=== PATIENT | female | born 1965 | race Caucasian/White ===

== ENCOUNTER → 2016-12-17 | Day surgery (SDC) | payer OTHER ==
[~2016-12-17] MED LIST: ATOR40TA PO; FURO-69 PO; IV RINGERS,LACTATED 1000ML 1,000 ML IV SCH; LEVO100T5 PO; LIDOCAINE 2% PF Vial for OR 5 ML VIAL. ONE; LISI40TA PO; METF500T4 PO; MULT-650 PO; OMEP20TA PO; PROPOFOL 40 ML IV ONE; SOLI5TAB PO; TRAM50TA PO
[2016-12-17 08:07] VITALS: BP 104/73
--- NOTE | 2016-12-22 11:05 | PATHOLOGY ---
PATHOLOGY REPORT * * * * * * * * FINAL DIAGNOSIS: Colon biopsy, ascending colon polyp: - Tubular adenoma. - Fecal material. COMMENT: There is no high grade dysplasia or evidence of malignancy. (JPM:csd; d/t: 12/21/2016) REPORT ELECTRONICALLY SIGNED BY: Vik Goodrich M.D. DATE/TIME: 12/21/2016 13:29 * * * * * * * * GROSS PATHOLOGY: The specimen is received in formalin labeled "Juan Francisco Mallory, ascending colon polyp". Received is white-hudson to green-hudson vegetative material measuring 0.6 x 0.6 x 0.1 cm in aggregate dimensions. Soft tissue is not grossly identified. The specimen is filtered and entirely submitted in cassette A1. (CAA; 12/18/2016) INITIAL CPT CODE(S): A; 56235 Professional services performed by [facility] [place] [address] Technical services performed by [facility] at [address] [place] [address], [address], [place] [address]. SPECIMEN(S) RECEIVED: A.Ascending colon polyp CLINICAL HISTORY: RUQ abdominal pain PATIENT: JUAN FRANCISCO MARIA /AGE: 1004/28/1965 (Age: 51) PATIENT #: [id number] ALT CASE #: SPECIMEN COLLECTION DATE: 12/17/2016 SPECIMEN RECEIVED DATE: 12/17/2016 [facility] - [address] [place] [address] - PHONE: [phone] * * * END OF REPORT * * *
== END | disposition home or self-care (01) ==
LOC: ENDOS 06:34
PROVIDERS: ATTEND Internal Medicine Gastroenterology
DX: Z09 Encounter for follow-up examination after completed treatment for conditions other than malignant neoplasm (principal); Z86.010 Personal history of colon polyps; D12.2 Benign neoplasm of ascending colon; K57.30 Diverticulosis of large intestine without perforation or abscess without bleeding; K64.0 First degree hemorrhoids; K29.50 Unspecified chronic gastritis without bleeding; Z88.6 Allergy status to analgesic agent
CPT/HCPCS: 43235; 45385; J2704; 88305

== ENCOUNTER → 2020-04-25 | Outpatient (CLI) | payer OTHER ==
[2016-12-17 08:07] VITALS: BP 104/73
[~2020-04-25] MED LIST changes: -IV RINGERS,LACTATED 1000ML 1,000 ML IV SCH; -LIDOCAINE 2% PF Vial for OR 5 ML VIAL. ONE; +LISI-130 PO; -LISI40TA PO; +METF500T16 PO; -METF500T4 PO; -OMEP20TA PO; +OMEP20TA8 PO; -PROPOFOL 40 ML IV ONE; -SOLI5TAB PO; +SOLI5TAB2 PO
--- NOTE | 2020-04-25 16:33 | KCIC ---
MRI of the lumbar spine without contrast 04/25/2020 CLINICAL HISTORY: Chronic low back pain. TECHNIQUE: Unenhanced T1-weighted and T2-weighted sagittal and axial and inversion recovery sagittal images of the lumbar spine were obtained. FINDINGS: Very mild S-shaped curvature of the thoracolumbar spine is seen. Degenerative signal changes and loss of height are seen involving all of the disks of the lumbar spine. Degenerative signal changes are seen within the marrow surrounding these discs. A 8mm hemangioma is seen involving the T12 vertebral body. A 1 cm hemangioma is seen involving the L4 vertebral body. The conus medullaris is normal morphology, position, and signal characteristics. At the T12-L1 disc space there is a mild generalized disc bulge. Superimposed on this disc bulge is a right paracentral focal disc herniation which extrudes superiorly to the mid T12 level. This measures 1.5 x 0.9 x 0.5 cm in craniocaudal, transverse and AP dimensions. This effaces the anterior CSF resulting in mild right-sided central spinal canal stenosis without evidence of cord impingement. No neural foraminal stenosis is seen. At the L1-2 disc space there is a mild generalized disc bulge. Superimposed on this disc bulge is a focal central disc herniation which extrudes slightly superiorly and inferiorly. This measures 1.5 x 0.6 x 0.3 cm in craniocaudal, transverse and AP dimensions. Degenerative changes are seen involving the facet joints bilaterally. There is mild ligamentum flavum hypertrophy bilaterally. There is prominence of the posterior epidural fat. These findings when combined result in mild central spinal canal stenosis. No neural foraminal stenosis is seen. At the L2-3 disc space there is a mild to moderate generalized disc bulge. This is eccentric to the left. Superimposed on this disc bulge is a left paracentral focal disc protrusion. This measures 3 mm in AP diameter. Degenerative changes are seen involving the facet joints bilaterally. There are small facet joint effusions bilaterally. There is prominence of the posterior epidural fat. Mild ligamentum flavum hypertrophy is seen. These findings result in mild to moderate left greater than right central spinal canal stenosis. No neural foraminal stenosis is seen. At the L3-4 disc space there is a mild generalized disc bulge. This is eccentric to the right. Degenerative changes are seen involving the facet joints bilaterally. There is mild ligamentum flavum hypertrophy bilaterally. There is prominence of posterior epidural fat. These findings when combined result in mild central spinal canal stenosis. No neural foraminal stenosis is seen. At the L4-5 disc space there is a mild generalized disc bulge. Superimposed on this disc bulge is a focal right paracentral disc protrusion. This measures 3 mm in AP diameter. Degenerative changes are seen involving the facet joints bilaterally. There is mild to moderate ligamentum flavum hypertrophy bilaterally. There is prominence of the posterior epidural fat. These findings when combined result in mild right greater than left central spinal canal stenosis. No neural foraminal stenosis is seen. At the L5-S1 disc space there is a moderate generalized disc bulge. Degenerative changes are seen involving the facet joints, left greater than right. There is mild ligamentum flavum hypertrophy bilaterally. These findings when combined do not result in significant central spinal canal stenosis. Mild to moderate left greater than right neural foraminal stenosis is seen. IMPRESSION: The changes of degenerative disc disease are seen throughout the thoracolumbar junction and lumbar spine. These findings result in mild right-sided central spinal canal stenosis at T12-L1, mild central spinal canal stenosis at L1-2 and L3-4, mild to moderate left greater than right central spinal canal stenosis at L2-3 and mild right greater than left central spinal canal stenosis at L4-5. Mild to moderate left greater than right neural foraminal stenosis is seen at L5-S1. Electronically signed by: Aron Carlson MD (04/25/2020 4:30 PM) [place] [id number]
== END ==
LOC: KCIC MRI 13:46
PROVIDERS: ATTEND Family Medicine
DX: M51.35 Other intervertebral disc degeneration, thoracolumbar region (principal); M48.05 Spinal stenosis, thoracolumbar region; M48.08 Spinal stenosis, sacral and sacrococcygeal region
CPT/HCPCS: 72148

== ENCOUNTER → 2020-07-08 | Outpatient (CLI) | payer OTHER ==
[2016-12-17 08:07] VITALS: BP 104/73
--- NOTE | 2020-07-09 08:55 | EEG ---
DATE OF SERVICE: 07/09/2020 ELECTROENCEPHALOGRAM EEG NUMBER: [id number] OBJECTIVE: The patient is a 55-year-old female with hallucinations and syncope. DESCRIPTION OF PROCEDURE: This is a digital study. Electrodes are placed according to international 10-20 system. Bipolar and referential montages are available. Activation procedures typically include hyperventilation and intermittent photic stimulation. INTERPRETATION: The waking background consists of 9-10 Hz, 50-100 microvolt activity, symmetrically distributed over parietooccipital regions and reactive to eye opening. Hyperventilation and intermittent photic stimulation are noncontributory. Stage 1 sleep is achieved with normal electroencephalogram patterns. IMPRESSION: This electroencephalogram with the patient awake and asleep is within normal limits. There is no focal, paroxysmal, or epileptiform activity. Thank you for letting us help with the patient's care. SARAH WHITAKER MD DR: JACQUI/sujey JOB#: [id number] / [id number] TRAVIS Monahan GALEN MD
--- NOTE | 2020-07-09 08:58 | SLEEP ---
DATE OF STUDY: 07/08/2020 OBJECTIVE: The patient is a 55-year-old female, who had a home sleep study showing sleep apnea, she is here for CPAP titration. Height 5 feet 6 inches, weight 320 pounds, body mass index 51. Chavies sleep score 12. INTERPRETATION: Sleep architecture is characterized by sleep efficiency of 84% across the 7 hours of recording time. There is excellent rebound of stage 3 and REM sleep later in the study during CPAP titration. The sleep onset latency is 0.3 minutes. This was a CPAP titration study, but the apnea-hypopnea index is still 12.4 events per hour of sleep, with a minimum oxygen saturation of 87%. The patient underwent CPAP titration and has excellent control of her events on a CPAP setting of 15 cm. Throughout the night, the patient had coughing episodes, which she relates to postnasal drip, causing arousals. There were also 20 periodic limb movements of sleep per hour, 2 per hour causing arousal. No cardiac arrhythmias are observed. IMPRESSION: Successful CPAP titration for obstructive sleep apnea using a Respironics DreamWear full face mask, small size, 15 cm of CPAP. RECOMMENDATIONS: 1. The patient should be established on this setting. 2. She should avoid sedatives and alcohol and pursue weight loss. Thank you for letting us help with the patient's care. SARAH WHITAKER MD DR: JACQUI/sujey JOB#: [id number] / [id number] TRAVIS Monahan GALEN MD
== END ==
LOC: RT 19:33
PROVIDERS: ATTEND Nurse Practitioner Family
DX: G47.33 Obstructive sleep apnea (adult) (pediatric) (principal)
CPT/HCPCS: 95811

== ENCOUNTER → 2020-07-09 | Outpatient (CLI) | payer OTHER ==
[2016-12-17 08:07] VITALS: BP 104/73
== END ==
LOC: RT 06:07
PROVIDERS: ATTEND Nurse Practitioner Family
DX: R55 Syncope and collapse (principal); R44.3 Hallucinations, unspecified; R25.2 Cramp and spasm
CPT/HCPCS: 95816

== ENCOUNTER → 2021-06-02 | Outpatient (CLI) | payer OTHER ==
[2016-12-17 08:07] VITALS: BP 104/73
--- NOTE | 2021-06-03 07:37 | KCIC ---
EXAMINATION: Magnetic resonance imaging (MRI) of the brain and brainstem without contrast 06/02/2021 3 :28 PM HISTORY: Dizziness and giddiness, slurred speech TECHNIQUE: Multiplanar multi-weighted MRI of the brain and brainstem was performed without intravenou s contrast using the general brain protocol. COMPARISON: None available. FINDINGS: The scalp and calvarium are normal. The superior sagittal sinus demonstrates normal venous flow. The corpus callosum is normal in shape and signal intensity. There is a remote lacunar infarct involving the left middle cerebellar peduncle.. The pituitary and sella are normal. There is subtle T2 signa l hyperintensity identified involving the left midbrain and left violetta extending into the posterior li mb left internal capsule. There is a remote lacunar infarct in the posterior limb left internal capsu le. There are T2/FLAIR signal hyperintense foci in the periventricular and subcortical white matter m ost suggestive of mild chronic small vessel ischemic changes. Diffusion weighted images reveal no hyperintensities to suggest acute cerebral infarction. The suscep tibility weighted sequences reveal no evidence of acute or chronic hemorrhage. The ventricles are nor mal in size and position without evidence of hydrocephalus. The paranasal sinuses are normal. The visualized portions of the mastoids are unremarkable. The orbi ts appear normal. Normal flow voids are demonstrated in the carotid arteries and basilar artery. IMPRESSION: 1. There is a remote lacunar infarct in the posterior limb left internal capsule. Along the posterior limb left internal capsule, left ventral midbrain and left violetta there is contiguous T2 signal hyperi ntensity without definite volume loss. This finding is nonspecific and could be associated with marshall tio degeneration versus demyelination. Findings are atypical for neoplastic process. Postcontrast en hanced imaging could be of benefit. Findings are atypical for sequela of ischemic change. No definite diffusion signal alteration identified within this region. 3 month follow-up MRI of the brain with a nd without contrast is recommended. There is no associated hemorrhage or mass effect. 2. Remote lacunar infarct in the left middle cerebellar peduncle. 3. There are T2/FLAIR signal hyperintense foci in the periventricular and subcortical white matter mo st suggestive of mild chronic small vessel ischemic changes. Electronically signed by: Michelle Chapman MD (06/03/2021 7:34 AM) [facility]
== END ==
LOC: KCIC MRI 15:07
PROVIDERS: ATTEND Nurse Practitioner Family
DX: I63.81 Other cerebral infarction due to occlusion or stenosis of small artery (principal); I69.398 Other sequelae of cerebral infarction; R42 Dizziness and giddiness; R47.81 Slurred speech
CPT/HCPCS: 70551

== ENCOUNTER 2021-06-23 09:25 | Outpatient (CLI) | payer OTHER ==
[~2021-06-23] VITALS: Ht 167.6 cm; Wt 147.3 kg
[2021-06-23] VITALS (10 sets, daily range): BP systolic 137–181; BP diastolic 69–97
[2021-06-23] MEDS ORDERED: HYDR-2765 PO (09:47)
[2021-06-23] MEDS ORDERED: OXYB5TAB10 PO (09:47)
[2021-06-23] MEDS ORDERED: CLOP75TA PO (09:47)
[2021-06-23] MEDS ORDERED: POTA10TA PO (09:47)
[2021-06-23] MEDS ORDERED: CRESTOR40 MG PO (09:47)
[2021-06-23] MEDS ORDERED: ALBU2.5V8 IH (09:47)
[2021-06-23] MEDS ORDERED: DULO60CA7 PO (09:47)
[2021-06-23] MEDS ORDERED: AMLO-187 PO (09:47)
[2021-06-23 10:12] LABS: HEMOGLOBIN 13.4 g/dL (12.0-15.5); RED BLOOD COUNT 4.94 x10^6/uL (3.50-5.40); RED CELL DISTRIBUTION WIDTH 14.4 % (11.5-14.5); WHITE BLOOD COUNT 9.5 x10^3/uL (4.0-11.0)
[2021-06-23 10:16] LABS: CALCIUM 9.1 mg/dL (8.5-10.1); CREATININE 0.9 mg/dL (0.6-1.0); GFR 64.3; POTASSIUM 3.9 mmol/L (3.5-5.1)
[2021-06-23] MEDS ORDERED: fentaNYL PF VIAL 100 MCG/2 ML VIAL ONE (10:39)
[2021-06-23] MEDS ORDERED: HEPARIN for IV BOLUS 10,000 UNIT/10 ML VIAL. ONE (10:39)
[2021-06-23] MEDS ORDERED: MIDAZOLAM HCL/PF 5 MG/5 ML VIAL. ONE (10:39)
[2021-06-23] MEDS ORDERED: VERAPAMIL 5 MG/2 ML VIAL. ONE (10:39)
[2021-06-23] MEDS ORDERED: NITROGLYCERIN 200 MCG/2 ML SYRINGE FOR CATH/VASC LAB. ONE (10:40)
[2021-06-23] MEDS ORDERED: IODIXANOL 320 MG/ML 100 ML VIAL. ONE (11:29)
[2021-06-23] MEDS ORDERED: LIDOCAINE 1% Multi-Dose 20 ML VIAL. ONE (11:29)
[2021-06-23] MEDS ORDERED: NITROGLYCERIN 200 MCG/2 ML SYRINGE FOR CATH/VASC LAB. IART ONE (12:00)
[2021-06-23] MEDS ORDERED: fentaNYL PF VIAL 100 MCG/2 ML VIAL IV ONE (12:00)
[2021-06-23] MEDS ORDERED: LIDOCAINE 1% Multi-Dose 20 ML VIAL. INJ ONE (12:00)
[2021-06-23] MEDS ORDERED: IODIXANOL 320 MG/ML 100 ML VIAL. IART ONE (12:00)
[2021-06-23] MEDS ORDERED: MIDAZOLAM HCL/PF 5 MG/5 ML VIAL. IV ONE (12:00)
[2021-06-23] MEDS ORDERED: LIDOCAINE 1% PF 2 ML VIAL. ONE (12:04)
[2021-06-23] MEDS ORDERED: HEPARIN for IV BOLUS 10,000 UNIT/10 ML VIAL. IART ONE (12:30)
[2021-06-23] MEDS ORDERED: VERAPAMIL 5 MG/2 ML VIAL. IART ONE (12:30)
[2021-06-23] MEDS ORDERED: LIDOCAINE 1% PF 2 ML VIAL. INJ ONE (12:30)
--- NOTE | 2021-06-23 14:49 | NUR ---
TR band DC'd. arm board reapplied. Discharge instructions reviewed with patient and family. Pt discharged home with family in private vehicle.
--- NOTE | 2021-06-23 15:41 | CARD ---
MR#: [id number] Date of Study: 06/23/2021 Ordering Physician: JOSE MELENDEZ, Referring Physician: JOSE MELENDEZ, Tech: RT Igor(R) APPROVED REPORT Technologist: Enriqueta Castillo RT(R) Nurse: Rachel Ang RN Procedure(s) performed: MODERATE SEDATION TIME: 45 MINUTES FLUORO TIME: 3.4 MIN DOSE: 54.9 GYCM2 CONTRAST: 48CC VISI LHC, RHC, Coronary angiography Ultrasound guided right IJ access INDICATION The indication(s) include : dyspnea. [facility] Clinical Frailty Scale [facility] Clinical Frailty Scale: Moderately Frail Heart Failure Heart Failure: Yes If Yes, Newly Diagnosed: Yes If Yes, HF Type: Diastolic If Yes, NYHA Class: Class II CASE TECHNIQUE IV conscious sedation was used throughout procedure with appropriate monitoring and was performed in the presence of a registered nurse who was an independent trained observer other than the physician p erforming the procedure. During this case, Fluoroscopy and low osmolar contrast were used for imaging . Specimen(s) Removed: N/A Estimated Blood loss: 15 cc's. PROCEDURE NARRATIVE Clinical information: 56-year-old woman with past medical history of morbid obesity, hypertension and dyslipidemia as well as CVA presented to the hospital in the setting of dyspnea. Procedure details: After appropriate informed consent the right neck and right wrist were prepped and draped in usual st erile fashion. Under ultrasound guidance a 5 Swazi sheath was placed in the right internal jugular vein. A hardcopy image has been stored. Next, a 5 Swazi PA catheter was advanced to the right hear t chambers and pressures and saturations were obtained. Next a 6 Swazi sheath was placed in the rig ht radial artery via the Seldinger technique. Diagnostic angiography was then performed with a 6 [facility] TIG catheter and a 6 Swazi JR4 catheter. Left ventricular end-diastolic pressure was obtained w ith a JR4 catheter and a pullback was performed. At case completion catheters and sheaths were remov ed and hemostasis was achieved via manual compression of the right internal jugular vein and with a T erumo radial band at the radial artery. No acute complications. Findings: RA 5 mmHg RV 26/3/10 PA 25/13/19 Wedge 10 mmHg PA saturation 74% FA saturation 98% Von cardiac output 5.6 L/min Von cardiac index 2.3 LVEDP 10 mmHg Coronary angiography: Left main is a large-caliber vessel with normal angiographic appearance LAD is a moderate caliber vessel with mild luminal irregularities Ramus is a moderate to large caliber vessel with mild luminal irregularities Left circumflex is a moderate to large caliber nondominant vessel with mild luminal irregularities RCA is a large-caliber dominant vessel normal angiographic appearance Conclusion 1. Normal biventricular filling pressures 2. No significant pulmonary pretension 3. Normal cardiac output 4. No significant coronary artery disease Recommendations Aggressive Medical Therapy Weight Loss Reduction Program Signed by : Jose Melendez, Electronically Approved : 06/23/2021 15:40:37
== END 2021-06-23 15:05 | disposition home or self-care (01) ==
LOC: CCL 09:25
PROVIDERS: ATTEND Internal Medicine Cardiovascular Disease
DX: R06.00 Dyspnea, unspecified (principal); E66.01 Morbid (severe) obesity due to excess calories; I11.0 Hypertensive heart disease with heart failure; I50.9 Heart failure, unspecified; E11.9 Type 2 diabetes mellitus without complications; E03.9 Hypothyroidism, unspecified; M19.90 Unspecified osteoarthritis, unspecified site; K21.9 Gastro-esophageal reflux disease without esophagitis; E78.00 Pure hypercholesterolemia, unspecified; G47.30 Sleep apnea, unspecified; J45.909 Unspecified asthma, uncomplicated; F32.9 Major depressive disorder, single episode, unspecified; F17.210 Nicotine dependence, cigarettes, uncomplicated; Z90.49 Acquired absence of other specified parts of digestive tract; Z90.710 Acquired absence of both cervix and uterus; Z98.51 Tubal ligation status; Z98.890 Other specified postprocedural states; Z79.84 Long term (current) use of oral hypoglycemic drugs; Z79.899 Other long term (current) drug therapy; Z88.5 Allergy status to narcotic agent; Z88.8 Allergy status to other drugs, medicaments and biological substances
CPT/HCPCS: 36415; 76937; 80048; 85027; 93460; 99152; 99153; C1769; C1773; C1894; J1644; J2250; J3010; J3490; Q9967